=== PATIENT | male | born 1965 ===

== ENCOUNTER 2016-12-09 20:32 | Emergency (ER) | payer SELFPAY ==
[2016-12-09 20:32] VITALS: BMI 29.0
[2016-12-09 20:44] VITALS: RESP 18; TEMP 98.2; O2SAT 99
[2016-12-09] MEDS ORDERED: Sodium Chloride 0.9% 1,000 ML IV STA (21:32)
[2016-12-09] MEDS ORDERED: Iohexol 240 (50 ml) PO ONE (21:34)
[2016-12-09 21:50] LABS: BASO % 0.3 % (0.0-2.0); EOS % 0.1 % (0.0-4.0); HEMATOCRIT 48.1 % (35.0-51.0); LYMPH # 0.4 K/uL (1.0-4.3); LYMPH % 5.8 % (20.0-40.0); MEAN CELL VOLUME 79.7 fl (80.0-94.0); MEAN CORPUSCULAR HEMOGLOBIN 26.9 pg (27.0-31.0); MEAN CORPUSCULAR HGB CONC 33.8 g/dL (33.0-37.0); MEAN PLATELET VOLUME 8.5 fl (7.2-11.7); MONO % 13.8 % (0.0-10.0); NEUT # 5.9 K/uL (1.8-7.0); NRBC % 0.1 % (0.0-0.0); PLATELET COUNT 205 K/uL (130-400); RED CELL DISTRIBUTION WIDTH 13.6 % (11.5-14.5); WHITE BLOOD COUNT 7.4 K/uL (4.8-10.8)
[2016-12-09] MEDS ORDERED: Iohexol 240 (50 ml) ONE (21:50)
[2016-12-09 22:09] LABS: ALB/GLOB RATIO 1.8 (1.0-2.1); ALKALINE PHOSPHATASE 67 U/L (38-126); ALT/SGPT 46 U/L (21-72); AST/SGOT 33 U/L (17-59); BILIRUBIN,TOTAL 1.7 mg/dl (0.2-1.3); BLOOD UREA NITROGEN 32 mg/dl (9-20); CARBON DIOXIDE 20 mmol/L (22-30); CHLORIDE 98 mmol/L (98-107); GFR AFRICAN-AMERICAN > 60; GLUCOSE,RANDOM 163 mg/dL (75-110); LIPASE 119 U/L (23-300); POTASSIUM 3.6 MMOL/L (3.6-5.0); SODIUM 135 mmol/l (132-148); TOTAL PROTEIN 8.3 G/DL (6.3-8.2)
[2016-12-09 22:26] LABS: NEUTROPHIL 80 % (42-75); TOTAL CELLS COUNTED 100
[2016-12-09 22:28] LABS: RBC URINE 3 /hpf (0-3); URINE BACTERIA RARE (<OCC); URINE BILIRUBIN NEGATIVE (NEGATIVE); URINE BLOOD NEGATIVE (NEGATIVE); URINE COLOR YELLOW (YELLOW); URINE GLUCOSE (UA) NEG (Normal); URINE KETONE NEGATIVE (NEGATIVE); URINE LEUKOCYTE ESTERASE NEG Leu/uL (Negative); URINE PROTEIN 100 mg/dL (NEGATIVE); URINE UROBILINOGEN 0.2-1.0 mg/dL (0.2-1.0); WBC URINE 3 /hpf (0-5)
[2016-12-10] MEDS ORDERED: Iohexol 300 100 ML IJ ONE (00:17)
[2016-12-10] MEDS ORDERED: Sodium Chloride 0.9% 50 ML IV ONE (00:17)
--- NOTE | 2016-12-10 01:08 | ED PDOC ---
HPI: Abdomen Time Seen by Provider: 12/09/16 21:12 Chief Complaint (Nursing): Abdominal Pain Chief Complaint (Provider): abdominal pain History Per: Patient History/Exam Limitations: no limitations Onset/Duration Of Symptoms: Days (2) Current Symptoms Are (Timing): Still Present Location Of Pain/Discomfort: LLQ Quality Of Discomfort: "Pain" Associated Symptoms: Nausea, Vomiting, Diarrhea Additional History Per: Patient Additional Complaint(s): 51 y/o male presents with left lower abdominal pain x 2 days. Associated vomiting, nonbloody diarrhea. Denies fever, chest pain, shortness of breath, palpitations, urinary symptoms, recent travel, sick contacts. Past Medical History Reviewed: Historical Data, Nursing Documentation, Vital Signs Vital Signs: Last Vital Signs Temp 98.2 F 12/09/16 20:41 Pulse 90 12/09/16 20:41 Resp 18 12/09/16 20:41 BP 126/84 12/09/16 20:41 Pulse Ox 99 12/09/16 20:41 - Medical History PMH: Diabetes, HTN, Hypercholesterolemia, Pancreatitis Denies: HIV, Chronic Kidney Disease - Surgical History Surgical History: No Surg Hx - Family History Family History: States: Unknown Family Hx - Immunization History Hx Tetanus Toxoid Vaccination: Yes Hx Influenza Vaccination: No Hx Pneumococcal Vaccination: No - Home Medications Home Medications: Ambulatory Orders Medication Instructions Recorded Metformin HCl 1,000 mg PO BID 01/08/14 Pravastatin Sodium [Pravastatin] 40 mg PO HS 03/09/14 Cyclobenzaprine HCl [Flexeril] 10 mg PO BID PRN #10 tab 03/28/15 Naproxen 500 mg PO BID PRN #20 tab 03/28/15 traMADol [Ultram] 50 mg PO Q6 PRN #15 tab 03/28/15 Cyclobenzaprine HCl [Flexeril] 10 mg PO TID PRN #15 tab 04/25/15 Enalapril Maleate 5 mg PO DAILY #30 tablet 07/31/15 Meclizine HCl [Antivert] 25 mg PO TID #15 tablet 07/31/15 Naproxen [Naprosyn] 500 mg PO Q12H #20 tab 07/31/15 Meloxicam [Mobic] 7.5 mg PO DAILY PRN #30 tab 08/16/15 Methocarbamol [Robaxin] 500 mg PO Q8 PRN #30 tab 08/16/15 Dicyclomine [Bentyl] 20 mg PO TID PRN #15 tab 12/10/16 Ondansetron ODT [Zofran ODT] 4 mg PO Q8 PRN #10 odt 12/10/16 - Allergies Allergies/Adverse Reactions: Allergies Allergy/AdvReac Type Severity Reaction Status Date / Time No Known Allergies Allergy Verified 10/20/15 22:57 Review of Systems ROS Statement: Except As Marked, All Systems Reviewed And Found Negative Gastrointestinal: Positive for: Nausea, Vomiting, Abdominal Pain, Diarrhea Physical Exam - Reviewed Nursing Documentation Reviewed: Yes Vital Signs Reviewed: Yes - Physical Exam Appears: Positive for: Well, Non-toxic, No Acute Distress Head Exam: Positive for: ATRAUMATIC, NORMAL INSPECTION, NORMOCEPHALIC Skin: Positive for: Normal Color Eye Exam: Positive for: Normal appearance ENT: Positive for: Normal ENT Inspection Cardiovascular/Chest: Positive for: Regular Rate, Rhythm Respiratory: Positive for: Normal Breath Sounds Gastrointestinal/Abdominal: Positive for: Bowel Sounds, Soft, Tenderness (llq) Back: Positive for: Normal Inspection Extremity: Positive for: Normal ROM Neurologic/Psych: Positive for: Alert, Oriented - Laboratory Results Result Diagrams: 12/09/16 21:46 12/09/16 21:46 - ECG O2 Sat by Pulse Oximetry: 99 - Progress ED Course And Treament: labs, urine, CT abd/pelvis, IV fluids, IV zofran, IV morphine ordered EXAM: CT Abdomen and Pelvis With Intravenous Contrast EXAM DATE/TIME: 12/09/2016 9:34 PM CLINICAL HISTORY: 51 years old, male; Pain; Abdominal pain; Localized; Left lower quadrant (llq); Additional info: Left lower abdominal pain, vomiting, diarrhea TECHNIQUE: Axial computed tomography images of the abdomen and pelvis with intravenous contrast. All CT scans at this facility use one or more dose reduction techniques, viz.: automated exposure control; ma/kV adjustment per patient size (including targeted exams where dose is matched to indication; i.e. head); or iterative reconstruction technique. Coronal and sagittal reformatted images were created and reviewed. CONTRAST: 90 mL of administered intravenously. COMPARISON: CT - ABD PELVIS W/O PO OR IV CONT 08/28/2014 12:07:03 AM FINDINGS: Lower thorax: Calcified granuloma in the left lung base anteriorly. ABDOMEN: Liver: Unremarkable. No mass. Gallbladder and bile ducts: Unremarkable. No calcified stones. No ductal dilation. Pancreas: Unremarkable. No mass. No ductal dilation. Spleen: Unremarkable. No splenomegaly. Adrenals: Unremarkable. No mass. Kidneys and ureters: Unremarkable. No solid mass. No hydronephrosis. Stomach and bowel: Unremarkable. No obstruction. No mucosal thickening. Appendix: No findings to suggest acute appendicitis. PELVIS: Bladder: Unremarkable. No mass. Reproductive: Unremarkable as visualized. ABDOMEN and PELVIS: Intraperitoneal space: Unremarkable. No free air. No significant fluid collection. Bones/joints: No acute fracture. No dislocation. Soft tissues: Unremarkable. Vasculature: Unremarkable. No abdominal aortic aneurysm. Lymph nodes: Unremarkable. No enlarged lymph nodes. IMPRESSION: No acute obstructive or inflammatory process in the abdomen or pelvis. Patient educated on findings, discharged with rx Zofran, Bentyl. Advised follow up PMD 2-3 days. Fluids. [place] diet. Return to ED for worsening/concerning symptoms. Disposition - Clinical Impression Clinical Impression: Gastroenteritis - Patient ED Disposition Is Patient to be Admitted: No Counseled Patient/Family Regarding: Studies Performed, Diagnosis, Need For Followup, Rx Given - Disposition Disposition: Routine/Home Disposition Time: 01:08 Condition: IMPROVED Prescriptions: Dicyclomine [Bentyl] 20 mg PO TID PRN #15 tab PRN Reason: Pain, Mild (1-3) Ondansetron ODT [Zofran ODT] 4 mg PO Q8 PRN #10 odt PRN Reason: Nausea/Vomiting Instructions: Gastroenteritis (ED)
[2016-12-10 02:28] VITALS: BP 133/81; PULSE 79
--- NOTE | 2016-12-10 11:47 | CT ---
PROCEDURE: CT Abdomen and Pelvis with contrast HISTORY: left lower abdominal pain, vomiting, diarrhea COMPARISON: 08/28/2014 TECHNIQUE: Contrast dose: 90 cc Omnipaque 300 Radiation dose: Total exam DLP = 383.86 mGy-cm. This CT exam was performed using one or more of the following dose reduction techniques: Automated exposure control, adjustment of the mA and/or kV according to patient size, and/or use of iterative reconstruction technique. FINDINGS: LOWER THORAX: Calcified granuloma in the left lower lobe. LIVER: Unremarkable. No gross lesion or ductal dilatation. GALLBLADDER AND BILE DUCTS: Unremarkable. PANCREAS: Unremarkable. No gross lesion or ductal dilatation. SPLEEN: Unremarkable. ADRENALS: Unremarkable. No mass. KIDNEYS AND URETERS: Unremarkable. No hydronephrosis. No solid mass. VASCULATURE: Unremarkable. No aortic aneurysm. BOWEL: Unremarkable. No obstruction. No gross mural thickening. APPENDIX: Normal appendix. PERITONEUM: Unremarkable. No free fluid. No free air. LYMPH NODES: Unremarkable. No enlarged lymph nodes. BLADDER: Unremarkable. REPRODUCTIVE: Normal prostate BONES: No acute fracture. OTHER FINDINGS: None. IMPRESSION: No acute abnormality. Incidental calcified granuloma in the left lower lobe. Otherwise unremarkable examination. Preliminary interpretation of this examination was reported by [facility] at 1:03 a.m. on 12/10/2016. There is concurrence of this report with the preliminary interpretation.
== END 2016-12-10 02:49 | disposition home or self-care (01) ==
LOC: H.ER 20:32
DX: K52.9 Noninfective gastroenteritis and colitis, unspecified (principal); E11.9 Type 2 diabetes mellitus without complications; I10 Essential (primary) hypertension; R11.2 Nausea with vomiting, unspecified; J98.4 Other disorders of lung
CPT/HCPCS: 74177; 80053; 81003; 83605; 83690; 85025; 87040; 96360; 99283; J2270; J2405; J7040; Q9966; Q9967

== ENCOUNTER 2017-08-12 21:14 | Emergency (ER) | payer SELFPAY ==
[2017-08-12 21:15] VITALS: BMI 29.0
[2017-08-12 21:43] VITALS: TEMP 98.3
--- NOTE | 2017-08-12 22:08 | ED PDOC ---
HPI: General Adult Time Seen by Provider: 08/12/17 22:07 Chief Complaint (Nursing): Headache Chief Complaint (Provider): headache, chills History Per: Patient Additional Complaint(s): 52-year-old male presents with headache on and off for 4 days. Patient has history of chronic back pain and states that when his back pain is exacerbated it causes headaches. He did not take anything for headache pain or for back pain. He feels a pressure sensation to top of head and rates current headache as 8/10. Patient states this is not the worst headache of his life. Patient also states he has been having chills with no fever. PMD: [facility] Past Medical History Reviewed: Historical Data, Nursing Documentation, Vital Signs Vital Signs: Last Vital Signs Temp 98.3 F 08/12/17 21:41 Pulse 69 08/12/17 21:41 Resp 20 08/12/17 21:41 BP 161/80 H 08/12/17 21:41 Pulse Ox 98 08/12/17 23:35 - Medical History PMH: Depression, Diabetes, HTN, Hypercholesterolemia - Family History Family History: States: No Known Family Hx - Living Arrangements Living Arrangements: With Family - Social History Current smoker - smoking cessation education provided: No Alcohol: None Drugs: Denies - Home Medications Home Medications: Ambulatory Orders Medication Instructions Recorded Metformin HCl 1,000 mg PO BID 01/08/14 Pravastatin Sodium [Pravastatin] 40 mg PO HS 03/09/14 Cyclobenzaprine HCl [Flexeril] 10 mg PO BID PRN #10 tab 03/28/15 Naproxen 500 mg PO BID PRN #20 tab 03/28/15 traMADol [Ultram] 50 mg PO Q6 PRN #15 tab 03/28/15 Cyclobenzaprine HCl [Flexeril] 10 mg PO TID PRN #15 tab 04/25/15 Enalapril Maleate 5 mg PO DAILY #30 tablet 07/31/15 Meclizine HCl [Antivert] 25 mg PO TID #15 tablet 07/31/15 Naproxen [Naprosyn] 500 mg PO Q12H #20 tab 07/31/15 Meloxicam [Mobic] 7.5 mg PO DAILY PRN #30 tab 08/16/15 Methocarbamol [Robaxin] 500 mg PO Q8 PRN #30 tab 08/16/15 Dicyclomine [Bentyl] 20 mg PO TID PRN #15 tab 12/10/16 Ondansetron ODT [Zofran ODT] 4 mg PO Q8 PRN #10 odt 12/10/16 Naproxen [Naprosyn] 500 mg PO BID #20 tab 08/12/17 - Allergies Allergies/Adverse Reactions: Allergies Allergy/AdvReac Type Severity Reaction Status Date / Time No Known Allergies Allergy Verified 10/20/15 22:57 Review of Systems ROS Statement: Except As Marked, All Systems Reviewed And Found Negative Constitutional: Positive for: Chills. Negative for: Fever, Weakness Cardiovascular: Negative for: Chest Pain Respiratory: Negative for: Cough Gastrointestinal: Negative for: Nausea, Vomiting, Abdominal Pain, Diarrhea Genitourinary Male: Negative for: Dysuria Neurological: Positive for: Headache. Negative for: Weakness, Numbness, Incoordination, Change in Speech, Confusion, Seizures, Altered Mental Status, Dizziness Physical Exam - Reviewed Nursing Documentation Reviewed: Yes Vital Signs Reviewed: Yes - Physical Exam Appears: Positive for: Well, Non-toxic, No Acute Distress Head Exam: Positive for: ATRAUMATIC, NORMAL INSPECTION Skin: Negative for: Rash Eye Exam: Positive for: Normal appearance Neck: Positive for: Normal Cardiovascular/Chest: Positive for: Regular Rate, Rhythm Respiratory: Positive for: Normal Breath Sounds. 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 Negative for: Motor/Sensory Deficits, Aphasia, Facial Droop - ECG O2 Sat by Pulse Oximetry: 98 Pulse Ox Interpretation: Normal - Other Rad CT head X-Ray: Read By Radiologist X-Ray Interpretation: no acute finding Medical Decision Making Medical Decision Makin52 y/o male with headache and chills Plan: IM toradol IM reglan Flu swab CT head Patient feels better after meds given. He is aware of all diagnostic testing results. All questions answered. Rx naprosyn given. Advised clinic follow up. Disposition - Clinical Impression Clinical Impression: Headache - Patient ED Disposition Is Patient to be Admitted: No Counseled Patient/Family Regarding: Studies Performed, Diagnosis, Need For Followup, Rx Given - Disposition Referrals: [facility] [Outside] Disposition: Routine/Home Disposition Time: 23:34 Condition: IMPROVED Additional Instructions: Take prescription medications as directed as needed for headache pain. Follow- up with clinic or return anytime to ED if acutely worse. Prescriptions: Naproxen [Naprosyn] 500 mg PO BID #20 tab Instructions: Headache, Adult Forms: [employer] (Martiniquais)
--- NOTE | 2017-08-12 23:24 | CT ---
EXAM: CT Head Without Intravenous Contrast CLINICAL HISTORY: 52 years old, male; Pain and signs and symptoms; Other: Chills; Headache; Headache not specified; Additional info: Headache for 4 days TECHNIQUE: Axial computed tomography images of the head/brain without intravenous contrast. All CT scans at this facility use one or more dose reduction techniques, viz.: automated exposure control; ma/kV adjustment per patient size (including targeted exams where dose is matched to indication; i.e. head); or iterative reconstruction technique. Coronal and sagittal reformatted images were created and reviewed. COMPARISON: CT - HEAD W/O CONTRAST 2015-04-25 03:06 FINDINGS: Brain: There is mild diffuse cerebral atrophy present, consistent with this patient's age. No hemorrhage. No significant white matter disease. Ventricles: Unremarkable. No ventriculomegaly. Bones/joints: Unremarkable. No acute fracture. Soft tissues: Unremarkable. Sinuses: Unremarkable as visualized. No acute sinusitis. Mastoid air cells: Unremarkable as visualized. No mastoid effusion. IMPRESSION: No acute intracranial findings.
[2017-08-12 23:42] VITALS: BP 154/70; PULSE 86; RESP 18
[2017-08-12 23:44] VITALS: O2SAT 98
== END 2017-08-12 23:42 | disposition home or self-care (01) ==
LOC: H.ER 21:14
DX: R51 Headache (principal); E11.9 Type 2 diabetes mellitus without complications; E78.00 Pure hypercholesterolemia, unspecified; F32.9 Major depressive disorder, single episode, unspecified; G89.29 Other chronic pain; I10 Essential (primary) hypertension
CPT/HCPCS: 70450; 87804; 96372; 99285; J1885; J2765

== ENCOUNTER 2017-11-16 23:16 | Emergency (ER) | payer OTHER, SELFPAY ==
[2017-11-16 23:18] VITALS: BMI 29.0
[2017-11-16 23:28] VITALS: O2SAT 99
--- NOTE | 2017-11-17 01:05 | ED PDOC ---
HPI: Male Pain Time Seen by Provider: 11/17/17 00:45 Chief Complaint (Nursing): Male Genitourinary Chief Complaint (Provider): dysuria History Per: Patient History/Exam Limitations: no limitations Onset/Duration Of Symptoms: Days (5) Current Symptoms Are (Timing): Still Present Quality Of Discomfort: Burning, "Pain" Additional Complaint(s): 52 y/o male presents for evaluation of dysuria x 5 days. Associated increased urine frequency/urgency and suprpubic discomfort. Denies fever, headache, nausea /vomiting, chest pain, back pain, hematuria, penile pain. Patient states he "sometimes" has penile discharge after urinating Patient states he is sexually active with 2-3 partners, admits to using protection Past Medical History Reviewed: Historical Data, Nursing Documentation, Vital Signs Vital Signs: Last Vital Signs Temp 98 F 11/16/17 23:24 Pulse 61 11/16/17 23:24 Resp 18 11/16/17 23:24 BP 126/81 11/16/17 23:24 Pulse Ox 99 11/16/17 23:24 - Medical History PMH: Depression, Diabetes, HTN, Hypercholesterolemia, Pancreatitis Denies: HIV, Chronic Kidney Disease - Surgical History Surgical History: No Surg Hx - Family History Family History: States: Unknown Family Hx - Immunization History Hx Tetanus Toxoid Vaccination: Yes Hx Influenza Vaccination: No Hx Pneumococcal Vaccination: No - Home Medications Home Medications: Ambulatory Orders Medication Instructions Recorded Metformin HCl 1,000 mg PO BID 01/08/14 Pravastatin Sodium [Pravastatin] 40 mg PO HS 03/09/14 Cyclobenzaprine HCl [Flexeril] 10 mg PO BID PRN #10 tab 03/28/15 Naproxen 500 mg PO BID PRN #20 tab 03/28/15 traMADol [Ultram] 50 mg PO Q6 PRN #15 tab 03/28/15 Cyclobenzaprine HCl [Flexeril] 10 mg PO TID PRN #15 tab 04/25/15 Enalapril Maleate 5 mg PO DAILY #30 tablet 07/31/15 Meclizine HCl [Antivert] 25 mg PO TID #15 tablet 07/31/15 Naproxen [Naprosyn] 500 mg PO Q12H #20 tab 07/31/15 Meloxicam [Mobic] 7.5 mg PO DAILY PRN #30 tab 08/16/15 Methocarbamol [Robaxin] 500 mg PO Q8 PRN #30 tab 08/16/15 Dicyclomine [Bentyl] 20 mg PO TID PRN #15 tab 12/10/16 Ondansetron ODT [Zofran ODT] 4 mg PO Q8 PRN #10 odt 12/10/16 Naproxen [Naprosyn] 500 mg PO BID #20 tab 08/12/17 - Allergies Allergies/Adverse Reactions: Allergies Allergy/AdvReac Type Severity Reaction Status Date / Time No Known Allergies Allergy Verified 10/20/15 22:57 Review of Systems ROS Statement: Except As Marked, All Systems Reviewed And Found Negative Genitourinary Male: Positive for: Dysuria, Frequency Physical Exam - Reviewed Nursing Documentation Reviewed: Yes Vital Signs Reviewed: Yes - Physical Exam Appears: Positive for: Well, Non-toxic, No Acute Distress Head Exam: Positive for: ATRAUMATIC, NORMAL INSPECTION, NORMOCEPHALIC Skin: Positive for: Normal Color Eye Exam: Positive for: Normal appearance ENT: Positive for: Normal ENT Inspection Cardiovascular/Chest: Positive for: Regular Rate, Rhythm Respiratory: Positive for: Normal Breath Sounds Gastrointestinal/Abdominal: Positive for: Bowel Sounds, Soft, Tenderness ( suprapubic discomfort) Male Genital Exam: Positive for: normal genitalia, other (exam dipper and drier [address]i LANE). Negative for: urethral discharge Back: Positive for: Normal Inspection Extremity: Positive for: Normal ROM Neurologic/Psych: Positive for: Alert, Oriented - Laboratory Results Result Diagrams: 11/17/17 02:30 11/17/17 02:30 - ECG O2 Sat by Pulse Oximetry: 99 - Progress ED Course And Treament: labs, urine, gc/chlamydia Patient educated on findings, requesting prophylactic treatment for STD Rocephin IM, zithromax PO ordered Patient educated on findings, discharged with instructions to follow up PMD 2-3 days Return precautions given Disposition - Clinical Impression Clinical Impression: Dysuria - Patient ED Disposition Is Patient to be Admitted: No Counseled Patient/Family Regarding: Studies Performed, Diagnosis, Need For Followup - Disposition Referrals: Johnson Castaneda MD [Primary Care Provider] - Disposition: Routine/Home Disposition Time: 03:05 Condition: STABLE Instructions: Dysuria, Adult (DC) Print Language: TAJIK
[2017-11-17 01:20] LABS: URINE BILIRUBIN NEGATIVE (NEGATIVE); URINE BLOOD NEGATIVE (NEGATIVE); URINE CLARITY SLIGHTY-CLOUDY (Clear); URINE COLOR YELLOW (YELLOW); URINE GLUCOSE (UA) NEG (Normal); URINE LEUKOCYTE ESTERASE NEG Leu/uL (Negative); URINE PROTEIN NEGATIVE (NEGATIVE); URINE UROBILINOGEN 0.2-1.0 mg/dL (0.2-1.0)
[2017-11-17] MEDS ORDERED: cefTRIAXone (Rocephin) 250 mg Inj IM ONE (02:22)
[2017-11-17 02:40] LABS: BASO # 0.1 K/uL (0.0-0.2); BASO % 1.1 % (0.0-2.0); EOS # 0.2 K/uL (0.0-0.7); HEMOGLOBIN 14.4 g/dL (12.0-18.0); LYMPH # 2.2 K/uL (1.0-4.3); LYMPH % 36.6 % (20.0-40.0); MEAN CELL VOLUME 80.5 fl (80.0-94.0); MEAN CORPUSCULAR HEMOGLOBIN 26.8 pg (27.0-31.0); MEAN CORPUSCULAR HGB CONC 33.3 g/dL (33.0-37.0); MEAN PLATELET VOLUME 8.4 fl (7.2-11.7); MONO # 0.7 K/uL (0.0-0.8); MONO % 11.6 % (0.0-10.0); NEUT # 2.8 K/uL (1.8-7.0); NEUT % 46.7 % (50.0-75.0); NRBC % 0.1 % (0.0-0.0); RBC 5.37 Mil/uL (4.40-5.90); RED CELL DISTRIBUTION WIDTH 13.4 % (11.5-14.5); WHITE BLOOD COUNT 6.1 K/uL (4.8-10.8)
[2017-11-17 02:45] LABS: ALB/GLOB RATIO 1.6 (1.0-2.1); ALBUMIN 4.2 g/dL (3.5-5.0); ALT/SGPT 30 U/L (21-72); AST/SGOT 26 U/L (17-59); BLOOD UREA NITROGEN 14 mg/dl (9-20); GFR AFRICAN-AMERICAN > 60; GFR NON-AFRICAN AMERICAN > 60
[2017-11-17] MEDS ORDERED: cefTRIAXone (Rocephin) 250 mg Inj ONE (02:53)
[2017-11-17 03:07] VITALS: BP 122/60; PULSE 76; RESP 16; TEMP 98.1
== END 2017-11-17 03:07 | disposition home or self-care (01) ==
LOC: H.ER 23:16
DX: R30.0 Dysuria (principal); E11.9 Type 2 diabetes mellitus without complications; E78.00 Pure hypercholesterolemia, unspecified; I10 Essential (primary) hypertension; Z86.59 Personal history of other mental and behavioral disorders
CPT/HCPCS: 80053; 81003; 85025; 87086; 87491; 87591; 96372; 99282; J0696

== ENCOUNTER 2017-11-26 22:02 | Emergency (ER) | payer OTHER ==
[2017-11-26 22:04] VITALS: BMI 29.0
[2017-11-26 22:48] VITALS: RESP 16
--- NOTE | 2017-11-27 00:19 | ED PDOC ---
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 Patient reports he was walking on the sidewalk when he tripped and fell trying to scratch his back. He injured left elbow, hit the right side of his head, and sustained a skin tear on right third digit. Patient denies loss of consciousness, dizziness, headache , vomiting, nausea or any other medical complaints. PMD: Dr. Castaneda - Fall Fall:Prior To Injury: Tripped Past Medical History Reviewed: Historical Data, Nursing Documentation, Vital Signs Vital Signs: Last Vital Signs Temp 98 F 11/26/17 22:48 Pulse 55 L 11/26/17 22:48 Resp 16 11/26/17 22:48 BP 133/87 11/26/17 22:48 Pulse Ox 99 11/26/17 22:48 - Medical History PMH: Depression, Diabetes, HTN, Hypercholesterolemia, Pancreatitis Denies: HIV, Chronic Kidney Disease - Surgical History Surgical History: No Surg Hx - Family History Family History: States: Unknown Family Hx - Immunization History Hx Tetanus Toxoid Vaccination: Yes Hx Influenza Vaccination: No Hx Pneumococcal Vaccination: No - Home Medications Home Medications: Ambulatory Orders Medication Instructions Recorded Metformin HCl 1,000 mg PO BID 01/08/14 Pravastatin Sodium [Pravastatin] 40 mg PO HS 03/09/14 Cyclobenzaprine HCl [Flexeril] 10 mg PO BID PRN #10 tab 03/28/15 Naproxen 500 mg PO BID PRN #20 tab 03/28/15 traMADol [Ultram] 50 mg PO Q6 PRN #15 tab 03/28/15 Cyclobenzaprine HCl [Flexeril] 10 mg PO TID PRN #15 tab 04/25/15 Enalapril Maleate 5 mg PO DAILY #30 tablet 07/31/15 Meclizine HCl [Antivert] 25 mg PO TID #15 tablet 07/31/15 Naproxen [Naprosyn] 500 mg PO Q12H #20 tab 07/31/15 Meloxicam [Mobic] 7.5 mg PO DAILY PRN #30 tab 08/16/15 Methocarbamol [Robaxin] 500 mg PO Q8 PRN #30 tab 08/16/15 Dicyclomine [Bentyl] 20 mg PO TID PRN #15 tab 12/10/16 Ondansetron ODT [Zofran ODT] 4 mg PO Q8 PRN #10 odt 12/10/16 Naproxen [Naprosyn] 500 mg PO BID #20 tab 08/12/17 - Allergies Allergies/Adverse Reactions: Allergies Allergy/AdvReac Type Severity Reaction Status Date / Time No Known Allergies Allergy Verified 11/26/17 22:36 Review of Systems ROS Statement: Except As Marked, All Systems Reviewed And Found Negative Skin: Positive for: Other (abrasion on left elbow, skin tear on right third digit) Neurological: Positive for: Other (head pain ) Physical Exam - Reviewed Nursing Documentation Reviewed: Yes Vital Signs Reviewed: Yes - Physical Exam Comments: GENERAL APPEARANCE: Patient is awake, alert, oriented x 3, in no acute distress. SKIN: Warm, dry; (-) cyanosis; (-) rash. HEAD: (-) scalp swelling or tenderness, (+) abrasion on right parietal scalp. EYES: (-) conjunctival pallor, (-) scleral icterus. ENMT: (-) sinus tenderness; mucous membranes are moist. NECK: (-) tenderness, (-) stiffness, (-) meningismus, (-) lymphadenopathy. CHEST AND RESPIRATORY: (-) rales, (-) rhonchi, (-) wheezes; breath sounds equal bilaterally. HEART AND CARDIOVASCULAR: (-) irregularity; (-) murmur, (-) gallop. ABDOMEN AND GI: Soft; (-) tenderness. EXTREMITIES: (+) abrasion on left elbow, not tender to touch, FROM, without deformity. (+) 2 cm skin tear on right dorsal aspect of third digit, FROM, no deformity. NEURO AND PSYCH: Mental status as above. 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 Strength symmetric. - ECG O2 Sat by Pulse Oximetry: 99 (RA) Pulse Ox Interpretation: Normal Medical Decision Making Medical Decision Making: Time: 23:24 Initial Plan: --Head CT --Tylenol 975 mg PO --Left elbow XR --Right hand 3rd digit XR XR L elbow : no fracture or dislocation, as read by PA XR R hand : no fracture or dislocation, as read by PA CT head : FINDINGS: Brain: There is no evidence of intracranial hemorrhage. The cortical/white matter interfaces are preserved throughout the brain. There is no intracranial mass or mass effect. Midline shift: No midline shift. Ventricles: The ventricular system is normal in size and distribution. Bones/joints: The calvarium and skull base are intact. No fracture. Soft tissues: Normal. Sinuses: Trace mucosal thickening of the ethmoid sinuses, likely within normal limits. Mastoid air cells: The mastoid air cells are clear. IMPRESSION: No acute intracranial abnormality. Dictated and Authenticated by: Luis Chaney DO 11/26/2017 11:54 PM Eastern Time ([place] & [place]) On re-evaluation, patient reports no headache, nausea or dizziness. On exam, patient remains AAOx3, in no acute distress, repeat neuro exam shows no focal findings. Diagnostic results d/w the patient in great detail. Based on history, exam and diagnostic results, plan will be for outpatient follow up. Patient instructed to follow-up with the clinic in 1-2 days without fail. Return to the emergency room at any time for any new or worsening symptoms. Patient states he fully agrees with and understands discharge instructions. States that he agrees with the plan and disposition. Verbalized and repeated discharge instructions and plan. I have given the patient opportunity to ask any additional questions. Scribe Attestation: Documented by Linnette Reynoso, acting as a scribe for Rajani Evans PA-C Provider Scribe Attestation: All medical record entries made by the Scribe were at my direction and personally dictated by me. I have reviewed the chart and agree that the record accurately reflects my personal performance of the history, physical exasikm, medical decision making, and the department course for this patient. I have also personally directed, reviewed, and agree with the discharge instructions and disposition. Disposition - Clinical Impression Clinical Impression: Head injury, Left elbow contusion, Skin tear - Patient ED Disposition Is Patient to be Admitted: No Counseled Patient/Family Regarding: Studies Performed, Diagnosis, Need For Followup - Disposition Disposition: Routine/Home Disposition Time: 01:30 Condition: STABLE Additional Instructions: Thank you for letting us take care of you today. You were treated for head injury, elbow contusion, skin tear. The emergency medical care you received today was directed towards the acute presenting symptoms. It may take several days for your symptoms to resolve. Return to the Emergency Department at any time if symptoms worsen, do not improve, or if any other problems arise. Please call one of the physicians/clinics you have been referred to that are listed on the Patient Visit Information form that is included in your discharge packet. Bring any paperwork you were given at discharge with you along with any medications to your follow up visit. Our treatment cannot replace ongoing medical care by a primary care provider (PCP) outside of the emergency department. Thank you for allowing the [facility] team to be part of your care today. Instructions: Wound Care (DC), Closed Head Injury, Contusion (DC) Forms: [employer] (Bangladeshi)
[2017-11-27 05:36] VITALS: BP 117/75; PULSE 54; TEMP 98.7; O2SAT 100
--- NOTE | 2017-11-27 09:23 | RAD ---
Date of service: 11/26/2017 PROCEDURE: Right middle finger radiographs. HISTORY: fall COMPARISON: None. TECHNIQUE: AP radiograph of the right hand, as well as spot oblique and lateral images of right middle finger were obtained. FINDINGS: RIGHT MIDDLE FINGER: Right middle finger normal, without fracture of focal lesion. Remainder of the right hand (as seen on the AP view) grossly unremarkable. JOINTS: Normal. SOFT TISSUES: Normal. OTHER FINDINGS: None. IMPRESSION: Normal right middle finger radiographs.
--- NOTE | 2017-11-27 09:23 | RAD ---
Date of service: 11/26/2017 PROCEDURE: Radiographs of the left elbow. HISTORY: fall COMPARISON: No prior. FINDINGS: BONES: No acute fracture or destructive bony lesion identified. JOINTS: Normal. No osteoarthritis. SOFT TISSUES: Normal. JOINT EFFUSION: None. OTHER FINDINGS: None IMPRESSION: Unremarkable radiographs of the left elbow.
--- NOTE | 2017-11-27 10:52 | CT ---
Date of service: 11/26/2017 PROCEDURE: CT HEAD WITHOUT CONTRAST. HISTORY: fall COMPARISON: 08/12/2017. TECHNIQUE: Axial computed tomography images were obtained through the head/brain without intravenous contrast. Coronal and sagittal reconstructed images. Radiation dose: Total exam DLP = 775.73 mGy-cm. This CT exam was performed using one or more of the following dose reduction techniques: Automated exposure control, adjustment of the mA and/or kV according to patient size, and/or use of iterative reconstruction technique. FINDINGS: HEMORRHAGE: No intracranial hemorrhage. BRAIN: No mass effect or edema. No atrophy or chronic microvascular ischemic changes. VENTRICLES: Unremarkable. No hydrocephalus. CALVARIUM: Unremarkable. PARANASAL SINUSES: Unremarkable as visualized. No significant inflammatory changes. MASTOID AIR CELLS: Unremarkable as visualized. No inflammatory changes. OTHER FINDINGS: None. IMPRESSION: No acute intracranial abnormalities. No significant findings to account for the clinical presentation. No significant interval change compared to the prior examination(s). Concordant results (preliminary interpretation) provided by [employer]. Procedure Completed: 23:38. Preliminary ([facility]) Report: Dictated and Authenticated: 23:54. Final Interpretation: 10:51. November 27, 2017.
== END 2017-11-27 05:35 | disposition home or self-care (01) ==
LOC: H.ER 22:02
DX: S09.90XA Unspecified injury of head, initial encounter (principal); S50.02XA Contusion of left elbow, initial encounter; S69.91XA Unspecified injury of right wrist, hand and finger(s), initial encounter; S69.92XA Unspecified injury of left wrist, hand and finger(s), initial encounter; W01.0XXA Fall on same level from slipping, tripping and stumbling without subsequent striking against object, initial encounter; Y92.480 Sidewalk as the place of occurrence of the external cause; F32.9 Major depressive disorder, single episode, unspecified; E78.00 Pure hypercholesterolemia, unspecified; E11.9 Type 2 diabetes mellitus without complications; I10 Essential (primary) hypertension; K85.90 Acute pancreatitis without necrosis or infection, unspecified

== ENCOUNTER 2018-02-12 10:45 | Day surgery (SDC) | payer SELFPAY ==
[2018-02-10 11:32] VITALS: BMI 29.2
[2018-02-12] MEDS ORDERED: Lactated Ringer's 1,000 ML IV ONE (11:52)
[2018-02-12] MEDS ORDERED: MethylPREDNISolone Depo 40 mg/ml Inj ONE (11:57)
[2018-02-12] MEDS ORDERED: Iohexol 300 10 ML ONE (11:58)
[2018-02-12] MEDS: Lidocaine 1% Inj (20ml) ONE ×4 (12:22→12:38)
[2018-02-12] MEDS ORDERED: Propofol 10 mg/ml Inj (20 ML) ONE (12:33)
[2018-02-12] MEDS ORDERED: Lidocaine 1% 5ml Abboject ONE (12:36)
[2018-02-12] MEDS ORDERED: Bupivacaine 0.25% Inj(30mL) IJ ONE (12:38)
[2018-02-12] MEDS ORDERED: HYDROmorphone 0.5 mg/0.5 ml ISec IVP PRN (12:47)
[2018-02-12] MEDS ORDERED: Lactated Ringer's 1,000 ML IV SCH (13:00)
[2018-02-12 14:02] VITALS: RESP 18
[2018-02-12 15:07] VITALS: O2SAT 98
[2018-02-12 16:25] VITALS: BP 118/74; PULSE 62; TEMP 97.8
--- NOTE | 2018-02-13 01:00 | OP ---
PROCEDURE DATE: 02/12/2018 PREOPERATIVE DIAGNOSIS: Lumbar spondylosis. POSTOPERATIVE DIAGNOSIS: Lumbar spondylosis. PROCEDURE: Bilateral L3, L4, and L5 medial branch nerve block. SURGEON: Ayan Abdullahi MD TYPE OF ANESTHESIA: Monitored anesthesia care. ANESTHESIOLOGIST: Jermaine Cassidy MD COMPLICATIONS: None. SPECIMEN: None. DESCRIPTION OF PROCEDURE: Procedure as follows: After we had a discussion of the procedure with the patient including its risks, benefits, alternatives, outcome data, possibility of no effect or increased pain, the patient consented to the procedure. He denied any recent infection, bleeding tendencies, or being on anticoagulants. A decision was then made to proceed to the OR. The patient was placed on the fluoroscopy table in a prone position with two pillows underneath his abdomen. The back was prepped and draped in a usual sterile fashion. A sterile technique was adhered during the entire procedure. The L3, L4, and L5 medial branch nerves were located at the intersection of the superior articular process and transverse process of the L4 and L5 pedicles along with the sacral ala. The procedure was first performed on the right side by turning the fluoroscopy towards the right at approximately 15 degrees. The skin overlying the three above targeted areas was then infiltrated with 1% lidocaine using 25-gauge needle. Subsequently, a 22-gauge 3.5-inch spinal needle was then incrementally advanced under fluoroscopic guidance until tip of the needle made bony contact with all three target areas. After satisfactory positioning of all three needles, approximately 3 mL of 0.25% Marcaine and Depo-Medrol mixture was injected. The needle was then removed and same exact procedure was performed on the contralateral left side using same medication and techniques. At the end of the case, the patient's back was cleaned and dry bandages were applied. The patient was then transferred to recovery area in good condition without any signs of LAW OFFICE ASSISTANT toxicity or any neurological deficits. He will have a followup in our office in approximately two to four weeks. Ayan Abdullahi MD
== END 2018-02-12 16:20 | disposition home or self-care (01) ==
LOC: H.OPSURG 10:45
PROVIDERS: ATTEND Anesthesiology
DX: M47.816 Spondylosis without myelopathy or radiculopathy, lumbar region (principal); E11.9 Type 2 diabetes mellitus without complications; I10 Essential (primary) hypertension; F17.210 Nicotine dependence, cigarettes, uncomplicated
CPT/HCPCS: 64493; 64494; 82948; J1030; J2704; J3010; J7120

== ENCOUNTER 2018-03-03 08:26 | Day surgery (SDC) | payer SELFPAY ==
[2018-02-10 11:32] VITALS: BMI 29.2
[2018-03-03 09:08] VITALS: RESP 18
[2018-03-03] MEDS ORDERED: MethylPREDNISolone Depo 40 mg/ml Inj ONE (09:57)
[2018-03-03] MEDS ORDERED: Bupivacaine HCl 0.5% PF (30 ml) Inj ONE (09:58)
[2018-03-03] MEDS ORDERED: Lidocaine 1% Inj (20ml) ONE (09:58)
[2018-03-03] MEDS ORDERED: Iohexol 300 10 ML ONE (12:23)
[2018-03-03] MEDS ORDERED: Midazolam 2 MG/2 ML VIAL ONE (12:26)
[2018-03-03] MEDS ORDERED: Propofol 10 mg/ml Inj (20 ML) ONE (12:26)
[2018-03-03] MEDS ORDERED: Lactated Ringer's 1,000 ML IV ONE (12:30)
[2018-03-03] MEDS ORDERED: Lactated Ringer's 1,000 ML IV SCH (13:00)
[2018-03-03 14:58] VITALS: TEMP 97
[2018-03-03 16:22] VITALS: O2SAT 99
[2018-03-03 18:14] VITALS: BP 110/70; PULSE 56
--- NOTE | 2018-03-04 01:03 | OP ---
PROCEDURE DATE: 03/03/2018 PREOPERATIVE DIAGNOSIS: Lumbar spondylosis and left shoulder osteoarthritis. POSTOPERATIVE DIAGNOSIS: Lumbar spondylosis and left shoulder osteoarthritis. PROCEDURE: Right L3, L4 and L5 medial branch nerve radiofrequency and left shoulder intraarticular steroid injection. ANESTHESIOLOGIST: Nikki Medina MD SURGEON: Ayan Abdullahi MD ANESTHESIA TYPE: Monitored anesthesia care. COMPLICATIONS: None. SPECIMEN: None. DESCRIPTION OF PROCEDURE: After we had a discussion of the procedure with the patient including its risks, benefits, alternative, outcome data, possibility of no effect or increased pain, the patient consented to the procedure. He denied any recent infection, bleeding tendencies or being on anticoagulant. A decision was then made to proceed to the OR. The patient was placed on the fluoroscopy table in prone position with two pillows underneath his abdomen. The back was prepped and draped in the usual sterile fashion, and sterile technique was adhered to during the entire procedure. The L3, L4 and L5 medial branch nerves were located at the intersection of the superior articular process and the transverse process of the L4 and L5 pedicle along with the sacral ala. The three above targeted areas were visualized under fluoroscopic view by turning the fluoroscopy towards the right at approximately 15 degrees. The skin overlying the three above targeted areas was then infiltrated with 1% lidocaine using a 25-gauge needle. Subsequently, a 22-gauge 3.5-inch Stimuplex needle was then incrementally advanced under fluoroscopic guidance until tip of the needle made bony contact with all 3 three target areas. After satisfactory positioning of all 3 needles, sensory and motor testing was carried out to satisfactory results. At this point, approximately 2 mL of lidocaine was used to anesthetize the nerve. Radiofrequency was then carried out at 80 degrees Celsius for approximately 90 seconds. At the end of the procedure, each nerve was treated with a combination of 0.5 % Marcaine and Depo-Medrol mixture. At the end of the case, the patient's back was cleaned and dry bandage was applied. Then, the left shoulder was visualized in the anteroposterior view. The target was at the 2 o'clock position of the humeral head. The skin overlying this area was then infiltrated with 1% lidocaine using a 25-gauge needle. Subsequently, a 22-gauge 3.5-inch spinal needle was then incrementally advanced under fluoroscopic guidance until bony contact with the target was made. After satisfactory positioning of the needle, approximately 1 mL of Isovue contrast was injected showing appropriate spread along the capsule. At this point, approximately 5 mL of 0.25% Marcaine and Depo-Medrol mixture was injected. At the end of the case, the patient's left shoulder was cleaned and dry bandage was applied. The patient was then transferred to recovery area in good condition without any signs of PROGRAM PROPOSALS COORDINATOR toxicity or any neurological deficit. He will be following up in the office in approximately two to four weeks. En-Joel Abdullahi MD
--- NOTE | 2018-03-04 16:06 | RAD ---
Date of service: 03/03/2018 PROCEDURE: Fluoroscopy up to 1 hr. HISTORY: PAIN MANAGEMENT COMPARISON: None TECHNIQUE: Standard protocol for this study/examination. FINDINGS: Total fluoroscopic time (continuous mode) utilized during the procedure 34.7 seconds. Total exam DLP: 5.98 (mGy). IMPRESSION: Less than 1 hr fluoroscopic assistance provided during performance of the procedure.
== END 2018-03-03 18:50 | disposition home or self-care (01) ==
LOC: H.OPSURG 08:26
PROVIDERS: ATTEND Anesthesiology
DX: M47.816 Spondylosis without myelopathy or radiculopathy, lumbar region (principal); E11.9 Type 2 diabetes mellitus without complications; E78.5 Hyperlipidemia, unspecified; I10 Essential (primary) hypertension; M19.012 Primary osteoarthritis, left shoulder
CPT/HCPCS: 20610; 64635; 77003; 82948; J1030; J1885; J2001; J2250; J2704; J3010; J7120; Q9967

== ENCOUNTER 2018-05-07 10:33 | Day surgery (SDC) | payer SELFPAY ==
[2018-02-10 11:32] VITALS: BMI 29.2
[2018-05-07 11:06] VITALS: RESP 18
--- NOTE | 2018-05-07 12:24 | CP.SDSHP ---
Same Day Surgery H & P - History Proposed Procedure: C3, C4, C5 medial branch nerve blocks Pre-Op Diagnosis: Cervical spondylosis - Previous Medical/Surgical History Cardiac: Hypertension - Allergies Allergies: Allergies peas Allergy (Verified 04/16/18 11:01) SWELLING - Physical Exam Vital Signs: Vital Signs 05/07/18 05/07/18 10:57 11:04 Temperature 98 F Pulse Rate 57 L 87 Respiratory 18 Rate Blood Pressure 102/72 O2 Sat by Pulse 98 Oximetry - Impression Impression: Cervical spondylosis Pt. Evaluated Today:Candidate for Anesthesia & Procedure: Yes Short Stay Discharge - Short Stay Discharge Admitting Diagnosis/Reason for Visit: M47.812 Disposition: HOME/ ROUTINE
[2018-05-07] MEDS ORDERED: MethylPREDNISolone Depo 40 mg/ml Inj ONE (12:53)
[2018-05-07] MEDS ORDERED: Iohexol 300 10 ML ONE (12:54)
[2018-05-07] MEDS ORDERED: Bupivacaine HCl 0.25% PF (30 ml) Inj ONE (12:54)
[2018-05-07] MEDS ORDERED: Lidocaine 1% Inj (20ml) ONE (12:54)
[2018-05-07] MEDS ORDERED: Lactated Ringer's 1,000 ML IV ONE (13:10)
[2018-05-07] MEDS ORDERED: Midazolam 2 MG/2 ML VIAL ONE (13:11)
[2018-05-07] MEDS ORDERED: Iohexol 300 10 ML IJ ONE (13:22)
[2018-05-07] MEDS ORDERED: Bupivacaine 0.25% Inj(30mL) IJ ONE (13:22)
[2018-05-07] MEDS ORDERED: methylPREDNISolone Depo 80 mg/ml Inj IM ONE (13:22)
[2018-05-07] MEDS ORDERED: Lidocaine 1% Inj (20ml) IJ ONE (13:22)
[2018-05-07] MEDS ORDERED: HYDROmorphone 0.5 mg/0.5 ml ISec IVP PRN (13:39)
[2018-05-07] MEDS ORDERED: Lactated Ringer's 1,000 ML IV SCH (13:45)
[2018-05-07 15:19] VITALS: O2SAT 98
--- NOTE | 2018-05-07 16:47 | RAD ---
Date of service: 05/07/2018 PROCEDURE: Cervical epidural HISTORY: PAIN MANAGEMENT COMPARISON: None TECHNIQUE: Standard protocol for this study/examination. FINDINGS: Total fluoroscopic time (continuous mode) utilized during the procedure 40.4 seconds. Total exam DLP: 10.68 (mGy). IMPRESSION: Less than 1 hr fluoroscopic assistance provided during performance of the procedure.
[2018-05-07 17:24] VITALS: BP 122/76; PULSE 56; TEMP 97.8
--- NOTE | 2018-05-08 00:59 | OP ---
PROCEDURE DATE: 05/07/2018 PREOPERATIVE DIAGNOSIS: Cervical spondylosis. POSTOPERATIVE DIAGNOSIS: Cervical spondylosis. PROCEDURE: Bilateral C3, C4, and C5 medial branch nerve block. ANESTHESIOLOGIST: Nikki Medina MD SURGEON: Ayan Abdullahi MD TYPE OF ANESTHESIA: Monitored anesthesia care. COMPLICATIONS: None. SPECIMEN: None. DESCRIPTION OF PROCEDURE: Procedure is as follows. After we had discussion of the procedure with the patient including its risks, benefits, alternatives, outcome data, possibility of no effect or increased pain, the patient consented to the procedure. He denied any recent infection, bleeding tendencies or being on anticoagulants. A decision was then made to proceed to the OR. The patient was placed on the fluoroscopy table in a prone position using the head positioner. The neck was prepped and draped in the usual sterile fashion. A sterile technique was adhered to during the entire procedure. The C3, C4, and C5 vertebral levels were first identified in the anteroposterior view. Angulation towards the contralateral side was used to accentuate the facet waist. The procedure was first performed on the right side by turning fluoroscopy towards to the left for approximately 10 degrees. The skin overlying the mid point of the facet waist at the three quarters of the spine levels was then infiltrated with 1% lidocaine using 25-gauge needle. Subsequently, a 25-gauge 3-1/2-inch spinal needle was then incrementally advanced under fluoroscopic guidance until tip of the needle made bony contact with all three targeted areas. After satisfactory positioning of all three needles, approximately 0.5 mL of Isovue contrast was injected showing appropriate spread without any signs of CSF or intravenous uptake. At this point, approximately 2 mL of 0.25% Marcaine and Depo-Medrol mixture was injected. The needle was then removed. The same exact procedure was performed on the contralateral left side using the same medications and techniques. At the end of the case, the patient's neck was cleaned, and dry bandages were applied. The patient was then transferred to recovery area in good condition without any signs of RETAIL PLANNING MANAGER toxicity or any neurological deficit. He will be following in the office in approximately two to four weeks. Ayan Abdullahi MD [facility] # [id number]
== END 2018-05-07 18:05 | disposition home or self-care (01) ==
LOC: H.OPSURG 10:33
PROVIDERS: ATTEND Anesthesiology
DX: M47.812 Spondylosis without myelopathy or radiculopathy, cervical region (principal); I10 Essential (primary) hypertension; F17.200 Nicotine dependence, unspecified, uncomplicated
CPT/HCPCS: 62320; 82948; J1030; J1040; J1170; J2250; J3010; J7120; Q9967